=== PATIENT | female | born 1960 | race Caucasian/White ===

== ENCOUNTER → 2017-10-18 | Outpatient (CLI) | payer BC, SELFPAY | PROVIDERS: Visit Provider Physician Assistant | DX: I49.9 Cardiac arrhythmia, unspecified (principal); Z13.220 Encounter for screening for lipoid disorders | CPT/HCPCS: 36415; 80061; 84443 ==

== ENCOUNTER → 2019-06-25 08:23 | Outpatient (CLI) | payer BC, SELFPAY ==
--- NOTE | 2019-06-25 08:27 | MM_ITS ---
PROCEDURE: MM DIG SCREENING MAMM BI W/CAD CLINICAL INDICATION: SCREENING There is a history of breast cancer patient's paternal aunt diagnosed after menopause. There has been previous biopsy right breast for benign disease. COMPARISON: [facility] DIGITAL MAMM-SCREEN BILATERAL from 05/08/2012 [facility]B DIG MAMM-SCREEN DOMI from 12/31/2013 [facility]B DIG MAMM-SCREEN DOMI from 03/14/2016 TECHNIQUE: Standard CC and MLO images were obtained. R2 CAD reviewed. FINDINGS: There is a diffusely dense heterogeneous parenchymal pattern somewhat lessening the sensitivity of mammography. There is a stable asymmetric density near the axillary tail left breast likely focal area of glandular tissue. There is minimal arterial calcification in each breast. A biopsy clip is seen central portion right breast. There is no suspicious lesion on the no suspicious microcalcifications. IMPRESSION: Diffusely dense parenchymal pattern with no suspicious lesions seen BI-RAD Category: 2 Benign Finding(s) FOLLOW-UP: 1YR 1 Year Follow-up (A letter has been sent to the patient regarding results of the study.) Dictated by: Dr. Stefano Montana MD 06/26/2019 17:53 Signed by: <Electronically signed by Dr. Stefano Montana MD in [place]> 06/26/2019 17:53
== END ==
PROVIDERS: PCP Family Medicine; Visit Provider Family Medicine
DX: Z12.31 Encounter for screening mammogram for malignant neoplasm of breast (principal)
CPT/HCPCS: 77067

== ENCOUNTER → 2019-08-27 11:38 | Outpatient (CLI) | payer BC, SELFPAY ==
[2019-08-27 12:01] LABS: Basophils % 0.9 % (0.1-2.0); Eosinophils # 0.1 K/mm3 (0.0-0.4); Eosinophils % 1.3 % (0.1-12.0); Hemoglobin 12.4 g/dL (12.2-16.2); Lymphocytes # 1.3 K/mm3 (0.7-4.5); Lymphocytes % 31.3 % (10-50); Mean Corpuscular Hemoglobin 28.8 pg (27.0-31.2); Mean Corpuscular Volume 92.9 fl (81-99); Mean Platelet Volume 7.7 fl (7.4-10.4); Monocytes # 0.2 K/mm3 (0.1-1.0); Monocytes % 4.6 % (1.7-9.3); Neutrophils # 2.6 K/mm3 (1.8-7.8); Neutrophils % 61.9 % (37.0-80.0); Platelet Count 346 K/mm3 (142-424); Red Cell Distribution Width 14.3 % (11.5-17.5); White Blood Count 4.1 K/mm3 (4.8-10.8)
[2019-08-27 13:31] LABS: Cholesterol 266 mg/dL (140-200); HDL Cholesterol 89 mg/dL (29-89); LDL Cholesterol 153 mg/dL (0-130); Thyroid Stimulating Hormone 1.63 uIU/ml (0.358-3.740); Triglycerides 122 mg/dL (30-200); VLDL Cholesterol 24 mg/dL (0-40)
[2019-08-27 13:33] LABS: Alanine Aminotransferase 21 U/L (12-78); Albumin Level 3.9 gm/dL (3.4-5.0); Albumin/Globulin Ratio 1.1 (1.1-1.8); Alkaline Phosphatase 69 U/L (46-116); Anion Gap 11.4 mEq/L (5-15); Aspartate Amino Transferase 13 U/L (15-37); Bilirubin,Total 0.4 mg/dL (0.2-1.0); Blood Urea Nitrogen 9 mg/dL (7-18); Calcium 9.4 mg/dL (8.5-10.1); Carbon Dioxide 28 mmol/L (21.0-32.0); Chloride 103 mmol/L (98-107); Creatinine,Serum 0.63 mg/dL (0.55-1.02); Estimated Glomerular Filt Rate 96 ml/min (>60); Ferritin 15 ng/mL (8-388); GFR (African American) 117 ML/MIN (>60); Globulin 3.4 gm/dl (1.3-3.2); Glucose 84 mg/dL (74-106); Potassium 4.4 mmoL/L (3.5-5.1); Sodium 138 mmol/L (136-145); Total Protein,Serum 7.3 gm/dL (6.4-8.2)
[2019-08-28 08:14] LABS: Iron 65 ug/dL (27-159); UIBC 340 ug/dL (131-425)
[2019-08-28 18:49] LABS: Antiparietal Cell Antibody 108.5 Units (0.0-20.0)
[2019-08-28 18:50] LABS: Iron Saturation 16 % (15-55); Vitamin B12 1033 pg/mL (232-1245)
[2019-09-01 08:04] LABS: Gastrin 1688 pg/mL (0-115)
== END ==
PROVIDERS: PCP Physician Assistant; Visit Provider Internal Medicine Gastroenterology
DX: K21.9 Gastro-esophageal reflux disease without esophagitis (principal); K29.40 Chronic atrophic gastritis without bleeding; Z13.29 Encounter for screening for other suspected endocrine disorder; Z13.220 Encounter for screening for lipoid disorders
CPT/HCPCS: 36415; 80053; 80061; 82607; 82728; 82941; 83516; 83540; 83550; 84443; 85025

== ENCOUNTER → 2019-10-11 15:18 | Outpatient (POV) | payer BC, SELFPAY | PROVIDERS: Visit Provider Nurse Practitioner Family | DX: Z00.00 Encounter for general adult medical examination without abnormal findings (principal) ==

== ENCOUNTER → 2020-01-25 11:02 | Outpatient (CLI) | payer BC, SELFPAY ==
--- NOTE | 2020-01-25 | XR_ITS ---
PROCEDURE: XR SHOULDER RT MIN 2V CLINICAL INDICATION: ACUTE RT SHOULDER PAIN COMPARISON: [id number] VIEWS from 10/12/2014 FINDINGS: There is no fracture dislocation or other focal bony lesion. Joint spaces are preserved. IMPRESSION: No acute findings. Dictated by: Macho Esquivel 01/25/2020 12:42 Electronically signed by Macho Esquivel in [place] 01/25/2020 12:42
--- NOTE | 2020-01-25 | XR_ITS ---
PROCEDURE: XR CERVICAL SPINE 5V CLINICAL INDICATION: ACUTE RT SHOULDER PAIN Pain radiating down right upper extremity COMPARISON: No exams were available for comparison FINDINGS: There is moderate degenerative disc disease at C6-7. There is no acute fracture or dislocation. There is some spurring extending into the bilateral C6-7 neural foramina but they will remain widely patent. IMPRESSION: Degenerative disc disease C6-7 with no acute bone pathology. MRI if the patient is MRI compatible may be useful to further assess extent of disease. Dictated by: Macho Esquivel 01/25/2020 12:45 Electronically signed by Macho Esquivel in [place] 01/25/2020 12:45
== END ==
PROVIDERS: PCP Family Medicine; Visit Provider Family Medicine
DX: M25.511 Pain in right shoulder (principal)
CPT/HCPCS: 72050; 73030

== ENCOUNTER → 2020-02-21 12:23 | Outpatient (POV) | payer BC, SELFPAY | PROVIDERS: PCP Family Medicine; Visit Provider Specialist | DX: M50.10 Cervical disc disorder with radiculopathy, unspecified cervical region (principal); M79.601 Pain in right arm | CPT/HCPCS: 95886; 95908 ==

== ENCOUNTER → 2020-05-22 15:52 | Outpatient (POV) | payer BC, SELFPAY | PROVIDERS: PCP Family Medicine; Visit Provider Nurse Practitioner Family | DX: Z00.00 Encounter for general adult medical examination without abnormal findings (principal) ==

== ENCOUNTER → 2020-05-23 17:48 | Outpatient (CLI) | payer BC, SELFPAY ==
[2020-05-23 18:07] LABS: Basophils % 0.5 % (0.1-2.0); Eosinophils # 0.1 K/mm3 (0.0-0.4); Eosinophils % 1.1 % (0.1-12.0); Hematocrit 32.3 % (37.0-47.0); Hemoglobin 10.5 g/dL (12.2-16.2); Lymphocytes # 1.5 K/mm3 (0.7-4.5); Lymphocytes % 33.3 % (10-50); Mean Corpuscular HGB Conc 32.6 g/dL (31.8-35.4); Mean Corpuscular Hemoglobin 27.4 pg (27.0-31.2); Mean Corpuscular Volume 84.2 fl (81-99); Mean Platelet Volume 8.1 fl (7.4-10.4); Monocytes # 0.3 K/mm3 (0.1-1.0); Neutrophils # 2.6 K/mm3 (1.8-7.8); Neutrophils % 59.1 % (37.0-80.0); Platelet Count 285 K/mm3 (142-424); Red Blood Count 3.84 M/mm3 (4.20-5.40); Red Cell Distribution Width 15.9 % (11.5-17.5); White Blood Count 4.4 K/mm3 (4.8-10.8)
[2020-05-23 20:46] LABS: Chloride 98 mmol/L (98-107); Sodium 135 mmol/L (136-145)
[2020-05-23 20:47] LABS: Potassium 4.1 mmoL/L (3.5-5.1)
[2020-05-23 20:49] LABS: Alanine Aminotransferase 13 U/L (12-78); Alkaline Phosphatase 63 U/L (38-126); Anion Gap 13.1 mEq/L (5-15); Aspartate Amino Transferase 25 U/L (14-36); Bilirubin,Total 0.3 mg/dl (0.2-1.3); Blood Urea Nitrogen 13 mg/dl (7-17); Carbon Dioxide 28 mmol/L (22.0-30.0); Estimated Glomerular Filt Rate 102 ml/min (>60); GFR (African American) 123 ML/MIN (>60); Iron 38 ug/dL (37-170)
[2020-05-23 20:50] LABS: Albumin/Globulin Ratio 1.4 (1.1-1.8); Calcium 9.1 mg/dl (8.4-10.2); Globulin 2.8 g/dL (1.3-3.2); Glucose 84 mg/dl (74-100); Total Protein,Serum 6.8 g/dl (6.3-8.2)
[2020-05-23 20:59] LABS: Total Iron Binding Capacity 467 ug/dL (265-497)
[2020-05-23 21:25] LABS: Ferritin 4.82 ng/ml (11.1-264)
[2020-05-26 12:30] LABS: Folate 19.2 ng/mL (>3.0); Vitamin B12 1112 pg/mL (232-1245)
== END ==
PROVIDERS: Visit Provider Nurse Practitioner Family
DX: K29.40 Chronic atrophic gastritis without bleeding (principal); K64.9 Unspecified hemorrhoids; K58.1 Irritable bowel syndrome with constipation; K30 Functional dyspepsia; E74.31 Sucrase-isomaltase deficiency
CPT/HCPCS: 36415; 80053; 82306; 82607; 82728; 82746; 83540; 83550; 85025

== ENCOUNTER → 2020-08-21 12:52 | Outpatient (POV) | payer BC, SELFPAY | PROVIDERS: Visit Provider Nurse Practitioner Family | DX: Z00.00 Encounter for general adult medical examination without abnormal findings (principal) ==

== ENCOUNTER → 2020-12-23 11:02 | Outpatient (CLI) | payer BC, SELFPAY ==
[2020-12-23 12:13] LABS: Basophils % 0.6 % (0.1-2.0); Eosinophils # 0.1 K/mm3 (0.0-0.4); Eosinophils % 1.4 % (0.1-12.0); Hematocrit 40.9 % (37.0-47.0); Hemoglobin 13.4 g/dL (12.2-16.2); Lymphocytes # 1.4 K/mm3 (0.7-4.5); Lymphocytes % 32.6 % (10-50); Mean Corpuscular HGB Conc 32.8 g/dL (31.8-35.4); Mean Corpuscular Hemoglobin 30.5 pg (27.0-31.2); Monocytes # 0.3 K/mm3 (0.1-1.0); Monocytes % 6.2 % (1.7-9.3); Neutrophils # 2.6 K/mm3 (1.8-7.8); Neutrophils % 59.1 % (37.0-80.0); Platelet Count 279 K/mm3 (142-424); Red Blood Count 4.39 M/mm3 (4.20-5.40); Red Cell Distribution Width 13.7 % (11.5-17.5); White Blood Count 4.3 K/mm3 (4.8-10.8)
[2020-12-23 14:11] LABS: Iron 137 ug/dL (37-170)
[2020-12-23 14:20] LABS: Total Iron Binding Capacity 338 ug/dL (265-497)
[2020-12-23 14:47] LABS: Ferritin 22.1 ng/ml (11.1-264)
== END ==
PROVIDERS: Visit Provider Nurse Practitioner Family
DX: K30 Functional dyspepsia (principal); K29.40 Chronic atrophic gastritis without bleeding; K64.9 Unspecified hemorrhoids; K58.1 Irritable bowel syndrome with constipation; E74.31 Sucrase-isomaltase deficiency; D50.9 Iron deficiency anemia, unspecified
CPT/HCPCS: 36415; 82728; 83540; 83550; 85025

== ENCOUNTER → 2021-02-19 12:40 | Outpatient (POV) | payer BC, SELFPAY | PROVIDERS: Visit Provider Nurse Practitioner Family | DX: Z00.00 Encounter for general adult medical examination without abnormal findings (principal) ==

== ENCOUNTER → 2021-05-18 09:54 | Outpatient (CLI) | payer BC, SELFPAY ==
[2021-05-18 10:28] LABS: Basophils % 0.8 % (0.1-2.0); Eosinophils # 0.1 K/mm3 (0.0-0.4); Eosinophils % 1.7 % (0.1-12.0); Hematocrit 36.7 % (37.0-47.0); Hemoglobin 12.5 g/dL (12.2-16.2); Lymphocytes # 1.4 K/mm3 (0.7-4.5); Lymphocytes % 35.6 % (10-50); Mean Corpuscular HGB Conc 33.9 g/dL (31.8-35.4); Mean Corpuscular Hemoglobin 30.5 pg (27.0-31.2); Mean Corpuscular Volume 89.9 fl (81-99); Mean Platelet Volume 7.5 fl (7.4-10.4); Monocytes # 0.2 K/mm3 (0.1-1.0); Monocytes % 5.2 % (1.7-9.3); Neutrophils # 2.2 K/mm3 (1.8-7.8); Neutrophils % 56.7 % (37.0-80.0); Platelet Count 232 K/mm3 (142-424); Red Blood Count 4.09 M/mm3 (4.20-5.40); Red Cell Distribution Width 13.4 % (11.5-17.5); White Blood Count 3.8 K/mm3 (4.8-10.8)
[2021-05-18 10:59] LABS: Chloride 103 mmol/L (98-107); Sodium 138 mmol/L (136-145)
[2021-05-18 11:00] LABS: Potassium 4.4 mmoL/L (3.5-5.1)
[2021-05-18 11:01] LABS: Iron 85 ug/dL (37-170)
[2021-05-18 11:02] LABS: Alanine Aminotransferase 12 U/L (12-78); Albumin Level 4.2 g/dl (3.5-5.0); Albumin/Globulin Ratio 1.7 (1.1-1.8); Alkaline Phosphatase 71 U/L (38-126); Anion Gap 10.4 mEq/L (5-15); Aspartate Amino Transferase 23 U/L (14-36); Bilirubin,Total 0.4 mg/dl (0.2-1.3); Blood Urea Nitrogen 10 mg/dl (7-17); Carbon Dioxide 29 mmol/L (22.0-30.0); Cholesterol 242 mg/dl (140-200); Estimated Glomerular Filt Rate 101 ml/min (>60); GFR (African American) 123 ML/MIN (>60); Globulin 2.5 g/dL (1.3-3.2); Total Protein,Serum 6.7 g/dl (6.3-8.2); Triglycerides 92 mg/dl (30-150); VLDL Cholesterol 18 mg/dL (0-40)
[2021-05-18 11:03] LABS: Chol/HDL Ratio 2.8 (1-3.5); Glucose 88 mg/dl (74-100); HDL Cholesterol 87 mg/dl (40-60)
[2021-05-18 11:12] LABS: Total Iron Binding Capacity 361 ug/dL (265-497)
[2021-05-18 11:14] LABS: Direct LDL Cholesterol 111.54 mg/dL (100-129)
[2021-05-18 11:34] LABS: Thyroid Stimulating Hormone 2.09 uIU/mL (0.465-4.68)
[2021-05-18 11:38] LABS: Ferritin 8.83 ng/ml (11.1-264)
[2021-05-18 11:52] LABS: Vitamin B12 979 pg/mL (239-931)
== END ==
PROVIDERS: Nurse Practitioner Family; Visit Provider Physician Assistant
DX: R10.84 Generalized abdominal pain (principal); K30 Functional dyspepsia; K64.9 Unspecified hemorrhoids; K58.1 Irritable bowel syndrome with constipation; D50.9 Iron deficiency anemia, unspecified; E74.31 Sucrase-isomaltase deficiency; K29.40 Chronic atrophic gastritis without bleeding; E53.8 Deficiency of other specified B group vitamins; Z13.220 Encounter for screening for lipoid disorders
CPT/HCPCS: 36415; 80053; 80061; 82607; 82728; 83540; 83550; 84443; 85025

== ENCOUNTER → 2021-06-11 14:14 | Outpatient (POV) | payer BC, SELFPAY | PROVIDERS: Visit Provider Nurse Practitioner Family | DX: Z00.00 Encounter for general adult medical examination without abnormal findings (principal) ==

== ENCOUNTER → 2021-06-22 11:54 | Outpatient (CLI) | payer BC, SELFPAY | PROVIDERS: Visit Provider Internal Medicine Gastroenterology | DX: Z01.812 Encounter for preprocedural laboratory examination (principal); Z11.52 Encounter for screening for COVID-19 | CPT/HCPCS: U0003 ==

== ENCOUNTER 2021-06-25 11:01 | Day surgery (SDC) | payer BC, SELFPAY ==
[2021-06-20 12:39] VITALS: BMI 22.1
[2021-06-25 11:27] VITALS: BP 137/82; PULSE 67; RESP 18; TEMP 36.6; O2SAT 99
[2021-06-25 12:08] VITALS: O2SAT 96
--- NOTE | 2021-06-25 12:10 | P.PN_ITS ---
[facility] Anesthesia Checklist - Patient Identification Patient Identification: Arm Band - Structural Data Admitted From: Home Planned Operative Procedure/s: flexible sigmoidoscopy Consent for Planned Operative Procedure(s) Verified: Yes Verified Documents: Surgical Consent, History and Physical - NPO Status Verified Time NPO: 00:00 - Additional verifications Anesthesia Reactions: No - Airway Assessment C-Spine Mobility Assessed: Yes (mp2) TMJ Mobility Assessed: Yes Dentition: Good Dentition - Neurological Assessment Level of Consciousness: Awake, Alert - Anesthesia Plan Anesthesia Risk discussed: Yes Anesthesia Plan: Verified ASA Class: I Anesthesia Type: MAC [facility] History I have reviewed the patient's past medical history: Yes Medical History: Reports:: Gastroesophageal Reflux Disease(GERD) Denies:: Cancer, Diabetes Mellitus Type 1, Diabetes Mellitus Type 2, Internal Pacemaker, Lung Disease, MRSA, Seizures *Have you ever received a pneumonia vaccine?: No *Have you received a flu vaccine this season?: Yes Anesthesia experience/problems:: nac Other Surgeries: Yes: Hysterectomy-Partial. No: Pacemaker Amputation: No Fractures: No - *Social History Last grade of school completed: Some college Smoking Status: Never smoker Alcohol Intake: never Substance Use Type: denies use (1487) *Occupational Status:: employed Housing: house Household Members: spouse *Travel in the last 8 weeks: None Family Hx:: No significant family history
--- NOTE | 2021-06-25 12:23 | HMH.PROC ---
[facility] Procedure Note Procedure Note:: Flexible Sigmoidoscopy Procedure Report: Sigmoidoscopy with hemorrhoid band ligation Endoscopist: Deshawn Garcia II, MD Referring physician: Carrington Gunn MD/Annetta ASHER Date of Procedure: June 25, 2021 Equipment: Olympus 180 variable stiffness pediatric colonoscope Sedation: MAC sedation Indication: Mrs. Leon is a 60-year-old female with a long history of IBS with constipation. She also has chronic dyspepsia and GERD. She continues to have frequent hemorrhoidal bleeding and hemorrhoid prolapse. She did have diagnostic upper endoscopy and colonoscopy in July 2019. She had chronic atrophic gastritis. She also had internal hemorrhoids which were banded. She had 2 polyps (tubular adenomas x2) removed from the colon. She stopped taking the Motegrity and FiberCon. She also has not been taking the MiraLAX plus Metamucil routinely. 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 She sometimes forgets to take Sucraid. She does have iron deficiency related to her chronic atrophic gastritis. Sigmoidoscopy is performed because of her ongoing hemorrhoidal bleeding and prolapse. Procedure: Prior to the procedure, a history and physical exam was performed, and patient's medications and allergies were reviewed. The risks, benefits and alternatives of the sedation and procedure were discussed with the patient. All questions were answered and informed consent was obtained. The patient was brought to the procedure room. Patient identification and proposed procedure were verified by the physician and the nurse. The patient was placed in a left lateral decubitus position and the scope was passed under direct vision. Throughout the procedure, the patient's blood pressure, pulse, and oxygen saturations were monitored continuously. The colonoscopy was accomplished without difficulty. The patient tolerated the procedure well. Findings: On digital rectal examination, there was normal rectal tone. There were large external hemorrhoidal tags and external hemorrhoids with some hemorrhoidal prolapse. The scope was then inserted through the anal canal into the rectum and advanced to 35 cm. Upon withdrawal, the sigmoid and rectum were grossly normal. Upon retroflexion there were grade 3 internal hemorrhoids. There was some fibrosis from prior banding. 3 columns of hemorrhoids were banded using 4 bands with excellent ligation effect. There was no retraction of the external hemorrhoidal tissue. Impression: 1. Large grade 3 internal hemorrhoids status post band ligation x4 2. Large external hemorrhoids/external tags Plan: If the patient does have recurrence, I would then consider more formal hemorrhoidectomy (via colorectal surgery). I would encourage compliance with the fiber bowel regimen or combined Motegrity plus FiberCon.
[2021-06-25 12:32] VITALS: BP 131/73; PULSE 68; RESP 18; TEMP 36.5; O2SAT 96
[2021-06-25 12:42] VITALS: BP 151/84; PULSE 59; RESP 18; O2SAT 100
[2021-06-25 12:55] VITALS: BP 159/90; PULSE 59; RESP 18; O2SAT 99
[2021-06-25 13:13] VITALS: BP 141/82; PULSE 54; RESP 18; O2SAT 100
== END 2021-06-25 13:19 | disposition home or self-care (01) ==
LOC: OUTP 11:03
PROVIDERS: PCP Family Medicine; Visit Provider Internal Medicine Gastroenterology
PROC: 0DJD8ZZ Inspection of Lower Intestinal Tract, Via Natural or Artificial Opening Endoscopic (ICD-10-PCS; CPT 45330; principal; 2021-06-25 12:00)
DX: K64.2 Third degree hemorrhoids (principal); Z86.010 Personal history of colon polyps; Z87.19 Personal history of other diseases of the digestive system; K58.1 Irritable bowel syndrome with constipation; K21.9 Gastro-esophageal reflux disease without esophagitis; E78.5 Hyperlipidemia, unspecified; Z88.6 Allergy status to analgesic agent; Z79.890 Hormone replacement therapy
CPT/HCPCS: 45350

== ENCOUNTER → 2022-09-09 10:54 | Outpatient (CLI) | payer BC, SELFPAY ==
--- NOTE | 2022-09-09 11:00 | MM_ITS ---
PROCEDURE INFORMATION: Exam: MG Bilateral Screening 3D Mammography Exam date and time: 09/09/2022 10:54 AM Age: 62 years old Clinical indication: Screening examination. Family history of breast carcinoma. TECHNIQUE: Imaging protocol: Bilateral Screening tomosynthesis and 2D mammography including computer-aided detection (CAD) when performed. COMPARISON: 1. MG MM DIG SCREENING MAMM BI W/CAD 06/25/2019 8:45 AM 2. MG DMSB DIG MAMM-SCREEN DOMI 03/14/2016 4:59 PM 3. MG DMSB DIG MAMM-SCREEN DOMI 12/31/2013 3:30 PM FINDINGS: MAMMOGRAPHY: Breast composition: The breasts are heterogeneously dense, which may obscure small masses. Mass: No suspicious masses. Architectural distortion: No suspicious distortion. Calcifications: No suspicious calcifications. Asymmetric density: None. Skin thickening: None. Axillary adenopathy: None. IMPRESSION: No mammographic evidence of malignancy. Annual screening is recommended unless otherwise clinically indicated. ASSESSMENT: BI-RADS Category 1: Negative
== END ==
PROVIDERS: PCP Family Medicine; Visit Provider Family Medicine
DX: Z12.31 Encounter for screening mammogram for malignant neoplasm of breast (principal)
CPT/HCPCS: 77063; 77067

== ENCOUNTER → 2023-09-12 09:57 | Outpatient (CLI) | payer BC, MEDICARE, SELFPAY ==
--- NOTE | 2023-09-12 10:02 | MM_ITS ---
PROCEDURE INFORMATION: Exam: MG Bilateral Screening 3D Mammography Exam date and time: 09/12/2023 9:57 AM Age: 63 years old Clinical indication: Screening examination TECHNIQUE: Imaging protocol: Bilateral Screening tomosynthesis and 2D mammography including computer-aided detection (CAD) when performed. COMPARISON: 1. MG MM DIG SCREENING MAMM BI W/CAD 09/09/2022 10:54 AM 2. MG MM DIG SCREENING MAMM BI W/CAD 06/25/2019 8:45 AM FINDINGS: MAMMOGRAPHY: Breast composition: The breasts are heterogeneously dense, which may obscure small masses. Mass: None. Architectural distortion: None. Calcifications: No suspicious calcifications. Asymmetric density: None. Skin thickening: None. Axillary adenopathy: None. IMPRESSION: No mammographic evidence of malignancy. Annual screening is recommended unless otherwise clinically indicated. ASSESSMENT: BI-RADS Category 1: Negative
== END ==
PROVIDERS: PCP Family Medicine; Visit Provider Family Medicine
DX: Z12.31 Encounter for screening mammogram for malignant neoplasm of breast (principal)
CPT/HCPCS: 77063; 77067

== ENCOUNTER 2023-10-29 14:30 | Outpatient (CLI) | payer MEDICARE, OTHER, SELFPAY ==
[2023-10-29 15:04] LABS: Basophils % 0.9 % (0.1-2.0); Eosinophils # 0.1 K/mm3 (0.0-0.4); Eosinophils % 1.8 % (0.1-12.0); Hematocrit 35.5 % (37.0-47.0); Hemoglobin 11.9 g/dL (12.2-16.2); Lymphocytes % 28.3 % (10-50); Mean Corpuscular HGB Conc 33.4 g/dL (31.8-35.4); Mean Corpuscular Hemoglobin 30.5 pg (27.0-31.2); Mean Corpuscular Volume 91.4 fl (81-99); Mean Platelet Volume 7.9 fl (7.4-10.4); Monocytes # 0.2 K/mm3 (0.1-1.0); Monocytes % 5.8 % (1.7-9.3); Neutrophils # 2.3 K/mm3 (1.8-7.8); Neutrophils % 63.3 % (37.0-80.0); Platelet Count 291 K/mm3 (142-424); Red Blood Count 3.89 M/mm3 (4.20-5.40); Red Cell Distribution Width 15.7 % (11.5-17.5); White Blood Count 3.6 K/mm3 (4.8-10.8)
[2023-10-29 16:01] LABS: Alanine Aminotransferase 20 U/L (12-78); Albumin Level 3.9 g/dl (3.5-5.0); Albumin/Globulin Ratio 1.6 (1.1-1.8); Alkaline Phosphatase 62 U/L (38-126); Anion Gap 8.9 mEq/L (5-15); Aspartate Amino Transferase 28 U/L (14-36); Bilirubin,Total 0.2 mg/dl (0.2-1.3); Blood Urea Nitrogen 12 mg/dl (7-17); Calcium 8.5 mg/dl (8.4-10.2); Carbon Dioxide 27 mmol/L (22.0-30.0); Chloride 101 mmol/L (98-107); Cholesterol 256 mg/dl (140-200); Estimated Glomerular Filt Rate 100 ml/min (>60); GFR (African American) 121 ML/MIN (>60); Globulin 2.4 g/dL (1.3-3.2); Glucose 94 mg/dl (74-100); HDL Cholesterol 85 mg/dl (40-60); Potassium 3.9 mmoL/L (3.5-5.1); Sodium 133 mmol/L (136-145); Total Protein,Serum 6.3 g/dl (6.3-8.2); Triglycerides 127 mg/dl (30-150); VLDL Cholesterol 25 mg/dL (0-40)
[2023-10-29 16:13] LABS: Direct LDL Cholesterol 121.06 mg/dL (100-129)
[2023-10-29 16:32] LABS: Thyroid Stimulating Hormone 1.87 uIU/mL (0.465-4.68)
[2023-10-29 16:39] LABS: 25-OH Vitamin D, Total 39.4 ng/mL (30-100)
[2023-10-29 16:51] LABS: Vitamin B12 800 pg/mL (239-931)
== END 2023-10-29 23:59 ==
LOC: LAB 14:33
PROVIDERS: PCP Family Medicine; Visit Provider Physician Assistant
DX: E53.8 Deficiency of other specified B group vitamins (principal); E55.9 Vitamin D deficiency, unspecified; K21.9 Gastro-esophageal reflux disease without esophagitis; Z13.220 Encounter for screening for lipoid disorders; E78.00 Pure hypercholesterolemia, unspecified
CPT/HCPCS: 36415; 80053; 80061; 82306; 82607; 84443; 85025

== ENCOUNTER 2025-02-15 11:53 | Outpatient (CLI) | payer MEDICARE, OTHER, SELFPAY ==
--- NOTE | 2025-02-15 | XR_ITS ---
FINAL REPORT CLINICAL HISTORY: .NECK PAIN..NO TRUMA FINDINGS: 3 views of the cervical spine were obtained. There is no acute fracture or subluxation. Mild disc space narrowing is seen at C5-6 and C6-7. There are minimal anterior and posterior osteophytes. IMPRESSION: Degenerative changes without acute bony abnormality. Reviewed, Interpreted and Dictated by Farhan Graham MD Transcribed by Linda Weber Authenticated and [facility]
--- NOTE | 2025-02-15 | XR_ITS ---
FINAL REPORT CLINICAL HISTORY: .SI PAIN X 1 WEEK FINDINGS: RIGHT HIP Two views of the right hip demonstrate no acute fracture or dislocation. The joint spaces appear normal. The visualized bony structures are well aligned. No soft tissue abnormality is seen. IMPRESSION: No acute bony abnormality. Reviewed, Interpreted and Dictated by Farhan Graham MD Transcribed by Linda Weber Authenticated and [facility]
--- OUTSIDE RECORDS SUMMARY | 2025-02-15 11:57 | XMS_ITS ---
Author Organization Unknown TREATMENT PLAN Planned Care Start Date Provider Encounter for Check-up [id number] [facility]
== END 2025-02-15 23:59 | disposition home or self-care (01) ==
LOC: RAD 11:56
PROVIDERS: PCP Family Medicine; Visit Provider Nurse Practitioner Family
DX: M25.551 Pain in right hip (principal); M54.2 Cervicalgia
CPT/HCPCS: 72050; 73502

== ENCOUNTER 2025-03-23 10:00 | Outpatient (RCR) | payer MEDICARE, OTHER, SELFPAY ==
--- NOTE | 2025-03-02 14:24 | HMH.PTOPEV ---
PT Outpatient Evaluation Rehab PT Outpatient Evaluation Start: 03/02/25 12:56 Freq: Status: Active Protocol: Document 03/02/25 12:56 KRISTINE (Rec: 03/02/25 14:22 KRISTINE [id number]) E-signed By June Huff, PT Outpatient Therapy Subjective History Subjective History Pt is a 64 y/o female who presents to PT for neck and hip pain. Pt reports onset of R posterior hip pain that radiates to the R thigh on . Pt reports she thinks pain may have started after picking up a heavy tote. Pt reports pain worsened throughout the week so she went to the doctor and received a steroid shot and oral steroid medication with improvement in symptoms. Pt reports continued R posterior hip pain with intermittent pain in the front of the thigh to the inside of the knee and intermittent numbness/ tingling of her R lateral foot . Pt reports pain is aggravated by prolonged standing and walking. Pt reports pain fluctuates and she has good and bad days. Pt reports she had a R hip xray on 02/15/25 without significant findings. Pt denies having imaging of her low back. Current: 01/03 Best: 01/03 Worst : 08/05 Pt also reports chronic neck pain for years that seems to be worse at the end of the day. Pt reports pain often radiates to the top of the left shoulder. Pt denies more distal UE symptoms or paresthesia. Pt reports pain is aggravated by sitting with poor posture, lifting, and being stressed at work. Pt reports pain is usually brief in nature and improves with fixing her posture. Pt had a cervical spine xray on 02/15/25 with impression of Degenerative changes without acute bony abnormality. Pt reports she was prescribed muscle relaxers she takes as needed at night time which helps her sleep especially when she is stressed. Pt denies further comorbidities to report. 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 Chief Complaint Pain Symptom Type Ache,Sharp,Dull,Numbness, Tingling Symptoms Relieved By Heat Symptoms Aggravated By Standing,Bending/Stooping, Physical Activity,Walking, Lifting Current Functional Limitations Lifting,Housework,Sleeping, Standing,Walking Symptom Description Intermittent Cervical Eval Palpation Cervical Muscles R Upper Trapezius,L Upper Trapezius Cervical/Thoracic Palpation Findings Tenderness Flexibility Deficits Upper Trapezius Muscle Length (R) Mild Tightness,(L) Mild Tightness Levaetor Scapulae Muscle Length (R) Mild Tightness,(L) Moderate Tightness Passive Joint Mobility Cervical PIVM Dec: R C4/5 L C4/5 R C5/6 L C5/6 R C6/7 L C6/7 AROM Cervical Spine Extension Active Range of 45 Motion (degrees) Cervical Spine Flexion Active Range of 45 Motion (degrees) Cervical Spine Right Lateral Flexion 35 Active Range of Motion (degrees) Cervical Spine Left Lateral Flexion 35 Active Range of Motion (degrees) Cervical Spine Right Rotation Active 60 Range of Motion (degrees) Cervical Spine Left Rotation Active 60 Range of Motion (degrees) MMT Bilateral Deltoid (C5) 5 Normal Biceps Brachii Strength Grade 5 Normal Wrist Extension Strength Grade 5 Normal Triceps Brachii Strength Grade 5 Normal Wrist Flexion Strength Grade 5 Normal Extensor Pollicis Longus Strength Grade 5 Normal Finger Abduction Strength Grade 5 Normal Altered Sensation Comment equal and intact to light touch sensation bilaterally Special Test C-Spine Foraminal Compression (Spurling) Negative Left,Negative Right Test C-spine Verterbral Accessory Movements Left P/A [place] that Elicit Symptoms C-Spine Compression Test Negative Left,Negative Right Shoulder/Elbow Eval Shoulder Objective Measurements Shoulder MMT Bilateral Lower Trapezius Strength Grade 4- Good- Middle Trapezius Strength Grade 4- Good- Rhomboids Strength Grade 4- Good- Upper Trapezius/Levator Scapulae 4- Good- Elbow Objective Measurements Lumbopelvic Eval Posture Thoracic Spine Posture Standing Position Neutral Lumbar Spine Posture Standing Position Neutral Palapation tenderness bilateral lumbar spinal tenderness Yes buttock tenderness Yes: R gluteal mm Lumbar/Sacral Palpation Findings Tenderness Lumbar/Sacral Palpation Overall Comment 3/4 TTP Accessory Movement L-spine Vertebrae Accessory Movements Central P/A [place] that Elicit Symptoms L3 bilateral L4 bilateral L5 bilateral S1 bilateral Range of Motion Lumbar Spine Active Flexion Range of 100 Motion (degrees) Lumbar Spine Active Extension Range of 15 Motion (degrees) Left Lumbar Spine Lateral Flexion Active 10 Range of Motion (degrees) Right Lumbar Spine Lateral Flexion 10 Active Range of Motion (degrees) Altered Sensation Bilateral LE Dermatome Level L2,L3,L4,L5,S1 Comment decreased light touch sensation R compared to L Neck Disability Index Neck Disability Index Section 1: Pain Intensity The pain is very mild at moment Section 2: Personal Care (washing, I can look after myself dressing, etc.) normally without causing extra pain Section 3: Lifting I can only lift very light weights Section 4: Reading I can read as much as I want to with slight pain in my neck Section 5: Headaches I have no headaches at all Section 6: Concentration I can concentrate fully when I want to with no difficulty Section 7: Work I can only do my usual work, but no more Section 8: Driving I can drive my car as long as I want with slight pain in my neck Section 9: Sleeping My sleep is midly disturbed (1 -2 hrs sleepless) Section 10: Recreation I am able to engage in all my recreation activities with some pain in NDI Score 11 Lower Extremity Functional Index Activities Today, do you or would you have any difficulty at all with: a.Any of your usual work, housework or A little bit of difficulty school activities b. Your usual hobbies, recreational or A little bit of difficulty sporting activities c. Getting into or out of the bath No difficulty d. Walking between rooms No difficulty e. Putting on your shoes or socks A little bit of difficulty f. Squatting No difficulty g. Lifting an object, like a bag of A little bit of difficulty groceries from the floor h. Performing light activities around No difficulty your home i. Performing heavy activities around Quite a bit of difficulty your home j. Getting into or out of a car A little bit of difficulty k. Walking 2 blocks A little bit of difficulty l. Walking a mile A little bit of difficulty m. Going up or down 10 stairs (about 1 No difficulty flight of stairs) n. Standing for 1 hour Moderate difficulty o. Sitting for 1 hour Moderate difficulty p. Running on even ground Moderate difficulty q. Running on uneven ground Moderate difficulty r. Making sharp turns while running fast Quite a bit of difficulty s. Hopping Moderate difficulty t. Rolling over in bed A little bit of difficulty LEFI Score Lower Extremity Functional Index Score 56 Outpatient Therapy Assessment Impairments Problems/Impairmments Palpation Tenderness,Impaired Range of Motion,Impaired Strength,Impaired Walking, Impaired Standing,Impaired Lifting,Impaired Squatting, Impaired Bending,Impaired Work Activities,Subjective C/O Pain,Impaired Self Care/Self Management Prognosis Rehab Potential Good Clinical Impression Consistent with Diagnosis Yes Additional details: low back pain with radicular pain Short Term Goals Number of Weeks 3 Restore Ability to Lift Objects to Waist Yes: demonstrate proper Level lifting mechanics to prevent reinjury Decrease Subjective C/O Pain Yes: Improve pain at worst to 6/10 to improve overall QOL Improve Self Care/Self Management Yes Patient to be Ind w/ HEP Yes Prison Goals Number of Weeks 6 Decreased Palpation Tenderness Yes: 0-1/4 TTP of L cervical and R hip musculature Increase Range of Motion Yes: Improve cervical/lumbar AROM to WNL Increase Strength Yes: Improve strength scapular strength to 4-4+/5 grossly to assist with posture Improve Neck Disability Index Score Yes: Improve score to 6 or less to improve overall QOL Improve LEFI Score Yes: Improve score to 66/80 to improve overall QOL Decrease Subjective C/O Pain Yes: Improve pain at worst to 6/10 to improve overall QOL Improve Self Care/Self Management Yes Outpatient Therapy Plan of Care Treatment Plan May Include Therapeutic Exercise Including Home Yes Exercise Program Manual Therapy Techniques Yes Neuromuscular Re-education Yes Therapeutic Activities to Return to Yes Previous Functional/Work Level ADL/Self Care Education Yes Mechanical Traction Yes Dry Needling Yes Thermal Modalities Yes Electrical Stimulation Yes Ultrasound/Phonophoresis Yes Iontophoresis Yes Orthotics/Bracing/Splinting Yes Vasopneumatic Compression Pump Yes Massage Yes Group Therapy for Medicare Yes Eval/Re-Eval Yes Frequency Times per week 2 Duration Number of Weeks 4-6 Addendums This patient is a candidate for social No or vocational rehab? Patient/Guardian verbally acknowledges Yes understanding of treatment program and consents to further treatment? Patient/Guardian verbally acknowledges Yes understanding of diagnosis, prognosis and goals for treatment? PHYSICIAN CERTIFICATION: I certify the specified therapy services for Shreya Leon are required, authorized, and reviewed every 30 days.
== END 2025-03-23 23:59 | disposition home or self-care (01) ==
LOC: PT 10:00
PROVIDERS: PCP Family Medicine; Visit Provider Family Medicine
DX: M54.2 Cervicalgia (principal); M25.551 Pain in right hip
CPT/HCPCS: 97014; 97110; 97140; 97163; G0283

== ENCOUNTER 2025-04-19 11:00 | Outpatient (RCR) | payer MEDICARE, OTHER, SELFPAY ==
--- NOTE | 2025-04-05 12:02 | HMH.RHREAS ---
Rehab Reassessment Rehab OP Re-assessment Start: 03/29/25 11:00 Freq: Status: Active Protocol: Document 04/05/25 11:04 [email or web address] (Rec: 04/05/25 12:01 KRISTINE [id number]) E-signed By June Huff PT Neck Disability Index Neck Disability Index Section 1: Pain The pain is very mild at moment Intensity Section 2: Personal I can look after myself normally but it causes extra Care (washing, pain dressing, etc.) Section 3: Lifting Pain prevents me from lifting heavy weights, but I can manage light to Section 4: Reading I can read as much as I want to with slight pain in my neck Section 5: Headaches I have slight headaches, which come infrequently Section 6: I can concentrate fully when I want to with no Concentration difficulty Section 7: Work I can do most of my usual work, but no more Section 8: Driving I can drive my car as long as I want with slight pain in my neck Section 9: Sleeping My sleep is midly disturbed (1-2 hrs sleepless) Section 10: I am able to engage in most, but not all of my usual Recreation recreation NDI Score 14 Rehab Re-assessment Subjective Subjective Pt reports she feels 0% improved since starting PT. Pt reports continued left-sided neck pain rated 10/10 at worst aggravated by stress, tension, and poor posture. Pt states she feels like her pain has been he worst it has ever been over the last week. Pt denies known trauma or injury that could've worsened pain but does states she has worked a little more. Pt reports non- compliance with HEP, states she forget to do them at home. Pt states she returns to her doctor next Friday for a follow-up visit. Pt also reports new onset of R sided tingling of her pinky and ring finger that is intermittent in nature. Pt denies R shoulder or arm pain or paresthesia. Objective Objective Notes Special tests: + ulnar N tension test of RUE, - R Spurlings Palpation: 3/4 TTP of L>R levator scapulae and upper trapezius with trigger points noted, also C5-C7 Cervical AROM: flex 45, ext 45, RLF 25, LLF 45, Rrot 60 , Lrot 60 Scapular strength: 4-/5 grossly Assessment Progress Assessment Slower Than Expected Assessment Notes Pt has attended 5 PT treatment sessions consisting of cervical strengthening/stretching, scapular strengthening, postural re-education, manual therapy and modalities with good tolerance. Pt demonstrated slight regression in NDI score and right cervical lateral flexion AROM. Pt also presents with continued report of severe left sided neck pain and new onset of R sided paresthesia of the ring and pinky fingers. Pt has only attended PT 1x/week and voiced non-compliance with HEP while reporting taking increased shifts at work likely limiting progress at this time. Pt educated on importance of compliance with HEP And PT POC to assist with progress. Overall the pt would continue to benefit from skilled PT to further improve subjective report of pain, cervical AROM, scapular strength, and posture to improve work tolerance and overall QOL. Patient goals met ST/4 Goals Not Met p! at worst, HEP compliance, LTG Revised Goals n/a Plan Plan Continue POC Frequency of Therapy 2x/week Duration of therapy 4 more weeks Time and Billing Re-Eval Time 12 Re-Eval Billing 0 Units Charge for PT No reassessment? Charge for OT No reassessment? PHYSICIAN CERTIFICATION: I certify the specified therapy services for Shreya Leon are required, authorized, and reviewed every 30 days.
== END 2025-04-19 23:59 | disposition home or self-care (01) ==
LOC: PT 11:00
PROVIDERS: PCP Family Medicine; Visit Provider Family Medicine
DX: M54.2 Cervicalgia (principal); M25.551 Pain in right hip
CPT/HCPCS: 97110; 97140

== ENCOUNTER 2025-04-28 10:52 | Outpatient (RCR) | payer MEDICARE, OTHER, SELFPAY | END 2025-04-28 23:59 | disposition home or self-care (01) | LOC: PT 10:52 | PROVIDERS: PCP Family Medicine; Visit Provider Family Medicine | DX: M54.2 Cervicalgia (principal); M25.551 Pain in right hip | CPT/HCPCS: 97110; 97140 ==

== ENCOUNTER 2025-04-30 09:55 | Outpatient (CLI) | payer MEDICARE, OTHER, SELFPAY ==
--- OUTSIDE RECORDS SUMMARY | 2025-04-13 07:00 | XMS_ITS ---
[facility] Address [address] [facility] [address] [place] [phone] Care Team Providers Care Cover Cutter Machine Name Role Phone Gisela Gunn Primary Care Provider Annetta Novak Unavailable [phone] Allergies Allergen (clinical drug ingredient) Drug/Non Drug [...] Provider Diagnosis [facility] [address] [phone] 04/13/2025 Annetta Novak Adult general medica l [...] :1960 A ge:64 Y S ex:Female Date:04/13/2025 Address:[address] [place] [address] [id number] Pcp:Gisela Gunn Subjective: * Chief Complaints: * [...] New since last visit: none. Occupation: dental assistant office manager. Past smoking status: no. Occup. exposure: none. [...] with radiculopathy - M50.10 1 2. B GA 21.0-21.9, adult - Z68.21 1 3. O [...] 08:1 3:05 AM EDT > [facility] Tegan Armendariz 04/15/2025 11:56:18 AM EDT > [...] * Images: Billing Information: * Visit Code: 62983 Office Visit, Est Pt., Level 3. * [...] * Electronic signature of ISMAEL Morales on 04/30/2025 at 10:00 AM EDT Sign off status: Pending * Provider: ISMAEL Elkins Date: 0 04/13/2025 Generated for Kayla page/Grayson/eTransmitting on: 0 04/30/2025 10:00 AM EDT History and Physical Notes * HPI (History of Present Illness) Category Sub-Category Detail Notes Category Not es HPI Patient is here today for Patien t is here today for a Medicare [...]
--- OUTSIDE RECORDS SUMMARY | 2025-04-16 06:20 | XMS_ITS ---
Author Organization [facility] Address [address] [facility] [address] [place] [phone] Care Team Providers Care Entry Level Automotive Technician Name Role Phone Gisela Gunn Primary Care Provider JaspreetAnnetta davis Unavailable [phone] Results Component Value Reference Range Notes CBC Venipuncture (in house) Reviewed date:04/21/2025 09:17:03 AM Interpretation: Performing Lab: Notes/Report: wbc 3.7 3.5 - 10 lymph 31.7% 15 - 50 mid 6.9% 2 - 15 gran 61.4% 35 - 80 rbc 4.45 3.5 - 5.5 hgb 13.3 11.5 - 16.5 hct 39.9 35 - 55 mcv 89.6 75 - 100 mch 29.9 25 - 35 mchc 33.3 31 - 38 platlet 278 100 - 400 REASON FOR VISIT bloodwork Medications Medication SIG (Take, Route, Frequency, Duration) Notes Start Date End Date Status ZELNORM 6 MG 1 TAB(S) ORALLY 2 TIMES A DAY *Please review for potential replacement for e-prescription and drug interaction check* Active Vitamin K 100 MCG 1 tablet Orally Once a day; Duration: 30 day(s) Active Sucraid 8500 UNIT/ML 1 mL orally 3 times a day; Duration: 7 day(s) Active Fluconazole 150 MG 1 tablet Orally once daily 04/07/2024 Active Ferrous Sulfate 325 (65 Fe) MG 1 tablet Orally once daily; Duration: 30 day(s) 04/08/2024 Active Motegrity 2 MG 1 tablet Orally Once a day; Duration: 30 days 03/07/2025 Active Multivitamin - 1 tab(s) orally once a day; Duration: 30 day(s) Active Estradiol 1 MG Take 1 tablet by mouth once daily; Duration: 90 Active Linzess 290 MCG 1 capsule at least 30 minutes before the first meal of the day on an empty stomach Orally Once a day; Duration: 30 day(s) 03/15/2025 Active Cyclobenzaprine HCl 5 MG 1 tablet Orally three times a day as needed 10/03/2023 Active Magnesium 250 2 ORALLY DAILY *Please review a nd pick correct strength-formulati on from Blurb options. If intended option is not shown, discontinue and re-order from Quick Search* Active Vitamin D3 25 MCG (1000 UT) 1 tab(s) orally once a day; Duration: 30 day(s) Active Vitamin B-12 1000 MCG 1 tab(s) orally once a day 09/03/2013 Active Premarin 0.625 MG/GM 1 g apply topically twice a week prn Active Problems Problem Type SNOMED Code ICD Code Onset Dates Problem Status W/U Status Risk Notes Problem Vitamin D deficiency (19848062) Vitamin D deficiency, unspecified (E55.9) Active confirmed Problem Other hyperlipidemia (E78.4) Active confirmed Encounters Encounter Location Date Provider Diagnosis [facility] [address] [facility] [address] [place], [place] [phone] 04/16/2025 Annetta Novak Vitamin B12 deficien cy E53.8 ; Vitamin D deficiency, unspecified E55.9 ; Iron deficiency anemia, unspecified iron deficiency anemia type D50.9 and Hypercholesteremia E78.00 Assessments Encounter Date Diagnosis (ICD Code) Assessment Notes Treatment Notes Treatment Clinical Notes Section Notes 04/16/2025 Vitamin B12 deficien cy (ICD-10 - E53.8) 04/16/2025 Vitamin D deficiency , unspecified (ICD-10 - E55.9) 04/16/2025 Iron deficiency anemia, unspecified iron deficiency anemia type (ICD-10 - D50.9) 04/16/2025 Hypercholesteremia (ICD-10 - E78.00) Plan Of Treatment Pending Test Test Name Order Date P-Vitamin B12 04/16/2025 P-Comprehensive Metabolic Panel (CMP) P-Iron 04/16/2025 P-Lipid Panel 04/16/2025 P-TSH reflex to FT4 04/16/2025 P-Vitamin D 25-Hydroxy 04/16/2025 Progress Notes * NICKI CATHERINEOB: 8 (64 yo F)Acc No.[id number]:04/16/2025 Patient: TAMIKA YBARRA Provider: ISMAEL Elkins :1960 A ge:64 Y S ex:Female Date:04/16/2025 Address:[address] [place] [address] [place], [id number] Pcp:Gisela Gunn Subjective: * Chief Complaints: * 1 . Bloodwork. * Medical History: * Medications: T aking Vitamin B-12 1000 MCG Tablet 1 tab(s) orally once a day , Taking Premarin 0.625 MG/GM Cream 1 g apply topically twice a week prn , Taking Magnesium 250 MG 2 ORALLY DAILY , Notes to Pharmacist: *Please review and pick correct strength- formulation from Blurb options. If intended option is not shown, discontinue and re-order from Quick Search*, Taking Vitamin D3 25 MCG (1000 UT) Tablet 1 tab(s) orally once a day , Taking Multivitamin - Tablet 1 tab(s) orally once a day , Taking Estradiol 1 MG Tablet Take 1 tablet by mouth once daily , Taking Motegrity 2 MG Tablet 1 tablet Orally Once a day , Taking Linzess 290 MCG Capsule 1 capsule at least 30 minutes before the first meal of the day on an empty stomach Orally Once a day , Taking Cyclobenzaprine HCl 5 MG Tablet 1 tablet Orally three times a day as needed , Taking Fluconazole 150 MG Tablet 1 tablet Orally once daily , Taking Ferrous Sulfate 325 (65 Fe) MG Tablet Delayed Release 1 tablet Orally once daily , Taking Vitamin K 100 MCG Tablet 1 tablet Orally Once a day , Taking Sucraid 8500 UNIT/ML Solution 1 mL orally 3 times a day , Taking ZELNORM 6 MG TABLET 1 TAB(S) ORALLY 2 TIMES A DAY , Notes to Pharmacist: *Please review for potential replacement for e-prescription and drug interaction check*, Medication List reviewed and reconciled with the patient Objective: * Vitals: Assessment: * Assessment: 1. V itamin B12 deficiency - E53.8 (Primary) 2 . V itamin D deficiency, unspecified - E55.9 3 . I samantha deficiency anemia, unspecified iron deficiency anemia type - D50.9 4 . H ypercholesteremia - E78.00 Plan: * Treatment: 2. V itamin D deficiency, unspecified L AB: P-Vitamin D 25-Hydroxy 3. I samantha deficiency anemia, unspecified iron deficiency anemia type L AB: P-Iron L AB: CBC Venipuncture (in house) (Collection Date & Time - 04/16/2025) Value Reference Range w bc 3.7 3.5 - 10 * l ymph 31.7% 15 - 50 * m id 6.9% 2 - 15 * g ran 61.4% 35 - 80 * r bc 4.45 3.5 - 5.5 * h gb 13.3 11.5 - 16.5 * h ct 39.9 35 - 55 * m cv 89.6 75 - 100 * m ch 29.9 25 - 35 * m chc 33.3 31 - 38 * p latlet 278 100 - 400 * Sugar Wilson L 04/16/2025 10 :45:12 AM EDT > 4.?Hypercholesteremia?LAB: P-Comprehensive Metabolic Panel (CMP) ?LAB: P-Lipid Panel ?LAB: P-TSH reflex to FT4 * Procedure Codes: 3 6415 VENIPUNCT, ROUTINE*, 33970 CBC WITH AUTO DIFF * Images: Billing Information: * Visit Code: * Procedure Codes: 62855 VENIPUNCT, ROUTINE*. 83442 CBC WITH AUTO DIFF. * Electronic signature of ISMAEL Morales on 04/30/2025 at 10:00 AM EDT Sign off status: Pending * Provider: ISMAEL Elkins Date: 0 04/16/2025 Generated for Kayla page/Grayson/eTransmitting on: 0 04/30/2025 10:00 AM EDT
--- OUTSIDE RECORDS SUMMARY | 2025-04-28 08:26 | XMS_ITS ---
Author Organization [facility] Address 1210 [facility] 36 [facility] [address] [place] [id number] Care Team Providers Care Professor Of Rhetoric Name Role Phone Gisela Gunn Primary Care Provider Annetta Novak [phone] REASON FOR VISIT lab and DI order Encounters Encounter Location Date Provider Diagnosis [facility] 1210 [facility] 36 [facility] [address] [place] [phone] 04/28/2025 Annetta Novak Neck pain M54.2 Assessments Encounter Date Diagnosis (ICD Code) Assessment Notes Treatment Notes Treatment Clinical Notes Section Notes 04/28/2025 Neck pain (ICD-10 - M54.2) Plan Of Treatment Pending Test Test Name Order Date MRI : Spine, Cervical, without contrast 04/28/2025 Progress Notes * CATHERINENICKI KLEINOB: (64 yo F)Acc No.[id number]:04/28/2025 Patient: TAMIKA YBARRA :1960 A ge:64 Y S ex:Female Address:[address] [place] [address] [place] [address] Subjective: * Chief Complaints: * l ab and DI order * Medical History: * Surgical History: * Hospitalization/Major Diagno stic Procedure: * Medications: Objective: * Vitals: * Physical Examination: Assessment: * Assessment: 1. N roc pain - M54.2 (Primary) Plan: * Treatment: * Procedure Codes: * true * Date: Generated for Printi ng/Faxing/eTransmitting on: 0 04/30/2025 10:00 AM EDT
--- OUTSIDE RECORDS SUMMARY | 2025-04-30 10:00 | XMS_ITS | Patient Health Record ---
[facility] Address [address] [facility] [address] [place] [phone] Care Team Providers Care Regional Extension Service Specialist Name Role Phone Gisela Gunn Primary Care Provider [phone] Jessenia Rehman Unavailable [phone] Annetta Novak Unavailable [phone] Allergies Allergen (clinical drug ingredient) Drug/Non Drug Allergy documented on EMR Reaction Allergy Type Onset Date Status codeine Codeine Unknown Drug Allergy Active Results Component Value Reference Range Notes CBC [...] - 38 platlet 278 100 - 400 X ray : Hip, right Reviewed date:02/16/2025 04:30:34 PM Interpretation:no acute changes Performing Lab: Notes/Report: no acute changes X ray : Spine, cervical Reviewed date:02/16/2025 04:30:02 PM Interpretation:degenerative changes Performing Lab: Notes/Report: degenerative changes Medications Medication SIG (Take, Route, Frequency, Duration) Notes Start Date End Date Status Motegrity 2 MG 1 tablet Orally Once a day; Duration: 30 days 03/07/2025 Active Multivitamin - 1 tab(s) orally once a day; Duration: 30 day(s) Active Estradiol 1 MG Take 1 tablet by mouth once daily; Duration: 90 Active Magnesium 250 2 ORALLY DAILY *Please review a nd pick correct strength-formulati on from [employer] options. If intended option is not shown, discontinue and re-order from [employer]* Active ZELNORM 6 MG 1 TAB(S) ORALLY 2 TIMES A DAY *Please review for potential replacement for e-prescription and drug interaction check* Active Vitamin D3 25 MCG (1000 UT) 1 tab(s) orally once a day; Duration: 30 day(s) Active Vitamin B-12 1000 MCG 1 tab(s) orally once a day 09/03/2013 Active Vitamin K 100 MCG 1 tablet Orally Once a day; Duration: 30 day(s) Active Premarin 0.625 MG/GM 1 g apply topically twice a week prn Active Sucraid 8500 UNIT/ML 1 mL orally 3 times a day; Duration: 7 day(s) Active Fluconazole 150 MG 1 tablet Orally once daily 04/07/2024 Active Ferrous Sulfate 325 (65 Fe) MG 1 tablet Orally once daily; Duration: 30 day(s) 04/08/2024 Active Linzess 290 MCG 1 capsule at least 30 minutes before the first meal of the day on an empty stomach Orally Once a day; Duration: 30 day(s) 03/15/2025 Active Cyclobenzaprine HCl 5 MG 1 tablet Orally three times a day as needed 10/03/2023 Active Immunizations Vaccine Route Administration Date Status Comme nts xFluzone High Dose-private (65yr&older) Unknown 09/24/2024 Administered xFluzone (6mos and older)-trivalent ID Intradermal 11/19/2012 Administered Twinrix-Hep A and Hep B Unknown 08/21/2018 Administered Twinrix-Hep A and Hep B Unknown 09/24/2018 Administered Twinrix-Hep A and Hep B Unknown 03/05/2019 Administered Tetanus Tdap-Adacel (over 7yrs) IM Intramuscular 10/04/2010 Administered Tetanus Tdap-Adacel (over 7yrs) Unknown 08/21/2018 Administered Tetanus Tdap-Adacel (over 7yrs) Unknown 02/10/2022 Administered Shingrix Unknown 07/16/2022 Administered Shingrix Unknown 03/03/2023 Administered Prevnar (PCV20) IM Intramuscular 10/03/2023 Administered Fluzone Quad (6months&older) Unknown 08/13/2018 Administered Fluzone Quad (6months&older) IM Intramuscular 08/27/2019 Administered Fluzone Quad (6months&older) IM Intramuscular 08/17/2020 Administered Fluzone PF Quad (6-35 months) Unknown 08/13/2018 Administered Fluzone PF Quad (6-35 months) Unknown 08/18/2022 Administered Fluzone High Dose (65yr and older) IM Intramuscular 10/03/2023 Administered DT, 7 YEARS OR OLDER Unknown 01/03/1997 Administered COVID 19 Moderna Unknown 11/01/2020 Administered COVID 19 Moderna Unknown 11/29/2020 Administered COVID 19 Moderna Unknown 08/22/2021 Administered COVID 19 Moderna Unknown 05/08/2022 Administered Problems Problem Type SNOMED Code ICD Code Onset Dates Problem Status W/U Status Risk Notes Problem Vitamin D deficiency (51995612) Vitamin D deficiency (E55.9) Active confirmed Problem Vitamin B12 deficien cy (151618953) Vitamin B12 deficiency (E53.8) Active confirmed Problem Vitamin D deficiency (28294220) Vitamin D deficiency, unspecified (E55.9) Active confirmed Problem Hyperlipidemia (30316981) Other hyperlipidemia (E78.4) Active confirmed Problem Unspecified menopausal and perimenopausal disorder (N95.9) Active confirmed Problem Cervical disc disord er with radiculopathy (360129379) Cervical disc disorder with radiculopathy (M50.10) Active confirmed Problem Constipation (24481764) Constipation, unspecified constipation type (K59.00) Active confirmed Problem Neck pain (04548596) Acute neck pain (M54.2) Active confirmed Problem Gastroesophageal reflux disease with esophagitis (419420460) Gastroesophageal reflux disease with esophagitis (K21.0) Active confirmed Problem Paresthesia (finding ) (69051914) Paresthesias (R20.2) Active confirmed Problem Gastroesophageal reflux disease (049979720) Gastroesophageal reflux disease, esophagitis presence not specified (K21.9) Active confirmed Problem Arthralgia of the pelvic region and thigh (670699868) Right hip pain (M25.551) Active confirmed Problem Iron deficiency anem ia (27638261) Iron deficiency anemia, unspecified iron deficiency anemia type (D50.9) Active confirmed Problem Cardiac dysrhythmia (840053240) Cardiac dysrhythmia, unspecified (I49.9) Active confirmed Problem Atrophic gastritis (86923363) Chronic gastritis without bleeding, unspecified gastritis type (K29.50) Active confirmed Problem Irritable bowel syndrome characterized by constipation (628074760) Irritable bowel syndrome with constipation (K58.1) Active confirmed Problem Irritable bowel syndrome (02487825) Irritable bowel syndrome with both constipation and diarrhea (K58.2) Active confirmed Problem Bladder spasm (502340295) Bladder spasm (N32.89) Active confirmed Problem Gastroesophageal reflux disease (919780056) Gastroesophageal reflux disease, unspecified whether esophagitis present (K21.9) Active confirmed Problem hypercholesterolemia (disorder) (89636389) Hypercholesteremia (E78.00) Active confirmed Vital Signs Heart Rate 66 /min 04/13/2025 Blood pressure diastolic 84 mm Hg 04/13/2025 Height 67 in 04/13/2025 Blood pressure systolic 126 mm Hg 04/13/2025 Weight 139.0 lbs 04/13/2025 BMI 21.77 kg/m2 04/13/2025 Encounters Encounter Location Date Provider Diagnosis [facility] [address] [facility] [address] [place], [place] [id number] 02/15/2025 Gisela Gunn [facility] [address] [facility] [address] [place], [place] [id number] 02/16/2025 Annetta Novak [facility] [address] [place], [place] [id number] 02/21/2025 Jessenia Rehman [facility] [address] [place], [place] [id number] 03/04/2025 Jessenia Rehman [facility] [address] [place], [place] [id number] 03/08/2025 Jessenia Garciaond [facility] [address] [place], [place] [id number] 03/15/2025 Gisela Gunn [facility] [address] [place], [place] [id number] 04/28/2025 Annetta Novak Neck pain M54.2 [facility] [address] [place] [id number] 02/15/2025 Jessenia Rehman Acute neck pain M54. 2 ; Acute right hip pain M25.551 and BMI 22.0-22.9, adult Z68.22 [facility] 1210 [facility] [address] [place] [id number] 04/16/2025 Annetta Novak Vitamin B12 deficien cy E53.8 ; Vitamin D deficiency, unspecified E55.9 ; Iron deficiency anemia, unspecified iron deficiency anemia type D50.9 and Hypercholesteremia E78.00 [facility] 12[facility] [address] [place] [id number] 04/13/2025 Annetta Novak Adult general medica l [...] Treatment Notes Treatment Clinical Notes Section Notes 02/15/2025 Acute neck pain (ICD-10 - M54.2) complete MDP; xray 02/15/2025 Acute right hip pain (ICD-10 - M25.551) complete MDP; OTC NSAID prn; ice/heat application; she would really like to have the hip xrayed 04/13/2025 Neck pain (ICD-10 - M54.2) 04/13/2025 Adult general medica l examination (ICD-10 - Z00.00) Patient instructed to return to office Annually for Annual Wellness Visits to include annual screenings of Pain assessment, Functional Ability assessment, Cognitive Ability assessment, Fall Risk assessment, Depression screening and Bladder control screening. 04/28/2025 Neck pain (ICD-10 - M54.2) 04/16/2025 Vitamin B12 deficien cy (ICD-10 - E53.8) 04/16/2025 Vitamin D deficiency , unspecified (ICD-10 - E55.9) 04/13/2025 Hormone replacement therapy (ICD-10 - Z79.890) 04/16/2025 Iron deficiency anemia, unspecified iron deficiency anemia type (ICD-10 - D50.9) 02/15/2025 BMI 22.0-22.9, adult (ICD-10 - Z68.22) 04/16/2025 Hypercholesteremia (ICD-10 - E78.00) 04/13/2025 Vitamin B12 deficien cy (ICD-10 - [...] lipid (ICD-10 - Z13.220) Plan Of Treatment Pending Test Test Name Order Date MRI : Spine, Cervical, without contrast 04/28/2025 Bone density 04/13/2025 Bone density 04/07/2024 Mammogram 04/13/2025 P-Vitamin B12 04/16/2025 P-Comprehensive Metabolic Panel (CMP) P-Iron 04/16/2025 P-Lipid Panel 04/16/2025 P-TSH reflex to FT4 04/16/2025 P-Vitamin D 25-Hydroxy 04/16/2025 Insurance Providers Payer Name Payer Address Payer Phone Subscriber Number Group Number Insured Name Patient Relationship to Insured Coverage Start Date Coverage End Date MEDICARE PART B [address] [address] [place] [phone] [id number] TAMIKA HASSAN Self - patient is the insured [address] [id number] TAMIKA HASSAN Self - patient is the insured Medications Administered Medication Instructions Date of Administration Dosage Notes Dexamethasone 03/21/2015 1 mL Given by [facility] (General) History Medical History History ICD Code Esophageal reflux MRI on left shoulder Surgical History Surgery Date(Month/Year) tubal ligation 1996 colonoscopy [address] Mondragon total hysterectomy 09/26/2009 EGD 2013 colonoscopy/egd 07/2019
[2025-04-30 11:04] LABS: Alanine Aminotransferase 15 U/L (12-78); Albumin Level 4.4 g/dl (3.5-5.0); Albumin/Globulin Ratio 1.7 (1.1-1.8); Alkaline Phosphatase 70 U/L (38-126); Anion Gap 11.1 mEq/L (5-15); Aspartate Amino Transferase 28 U/L (14-36); Bilirubin,Total 0.6 mg/dl (0.2-1.3); Blood Urea Nitrogen 13 mg/dl (7-17); Calcium 9.4 mg/dl (8.4-10.2); Carbon Dioxide 28 mmol/L (22.0-30.0); Chloride 98 mmol/L (98-107); Cholesterol 260 mg/dl (140-200); Creatinine,Serum 0.60 mg/dl (0.52-1.04); Estimated Glomerular Filt Rate 100 ml/min (>60); GFR (African American) 121 ML/MIN (>60); Globulin 2.6 g/dL (1.3-3.2); Glucose 89 mg/dl (74-100); HDL Cholesterol 90 mg/dl (40-60); Potassium 4.1 mmoL/L (3.5-5.1); Sodium 133 mmol/L (136-145); Total Protein,Serum 7.0 g/dl (6.3-8.2); Triglycerides 123 mg/dl (30-150)
[2025-04-30 11:21] LABS: 25-OH Vitamin D, Total 33.2 ng/mL (30-100)
[2025-04-30 11:34] LABS: Thyroid Stimulating Hormone 2.63 uIU/mL (0.465-4.68)
[2025-04-30 11:53] LABS: Vitamin B12 522 pg/mL (239-931)
[2025-04-30 14:47] LABS: Iron 148 ug/dL (37-170)
== END 2025-04-30 23:59 | disposition home or self-care (01) ==
LOC: LAB 09:58
PROVIDERS: Physician Assistant; PCP Family Medicine; Visit Provider Family Medicine
DX: D50.9 Iron deficiency anemia, unspecified (principal); E78.00 Pure hypercholesterolemia, unspecified; E55.9 Vitamin D deficiency, unspecified
CPT/HCPCS: 36415; 80053; 80061; 82306; 82607; 83540; 84443

== ENCOUNTER 2025-05-11 09:23 | Outpatient (CLI) | payer MEDICARE, OTHER, SELFPAY ==
--- OUTSIDE RECORDS SUMMARY | 2025-04-13 07:00 | XMS_ITS ---
Author Organization [facility] Address [address] [facility] [address] [place] [id number] Care Team Providers Care Clinical Professor Name Role Phone Gisela Gunn Primary Care Provider Annetta Novak Unavailable [phone] Allergies Allergen (clinical drug ingredient) Drug/Non Drug Allergy documented on EMR Reaction Allergy Type Onset Date Status codeine Codeine Unknown Drug Allergy Active REASON FOR VISIT Annual Wellness Visit Medications Medication SIG (Take, Route, Frequency, Duration) Notes Start Date End Date Status Fluconazole 150 MG 1 tablet Orally once daily 04/07/2024 Not-Taking Ferrous Sulfate 325 (65 Fe) MG 1 tablet Orally once daily; Duration: 30 day(s) 04/08/2024 Not-Taking Vitamin K 100 MCG 1 tablet Orally Once a day; Duration: 30 day(s) Not-Taking Sucraid 8500 UNIT/ML 1 mL orally 3 times a day; Duration: 7 day(s) Not-Taking ZELNORM 6 MG 1 TAB(S) ORALLY 2 TIMES A DAY *Please review for potential replacement for e-prescription and drug interaction check* Not-Taking Estradiol 1 MG Take 1 tablet by mouth once daily; Duration: 90 Active Cyclobenzaprine HCl 5 MG 1 tablet Orally three times a day as needed 10/03/2023 Not-Taking Multivitamin - 1 tab(s) orally once a day; Duration: 30 day(s) Active Motegrity 2 MG 1 tablet Orally Once a day; Duration: 30 days 03/07/2025 Not-Taking Linzess 290 MCG 1 capsule at least 30 minutes before the first meal of the day on an empty stomach Orally Once a day; Duration: 30 day(s) 03/15/2025 Not-Taking Vitamin D3 25 MCG (1000 UT) 1 tab(s) orally once a day; Duration: 30 day(s) Active Vitamin B-12 1000 MCG 1 tab(s) orally once a day 09/03/2013 Active Premarin 0.625 MG/GM 1 g apply topically twice a week prn Active Magnesium 250 2 ORALLY DAILY *Please review and pick correct strength-formulat ion from Medispan options. If intended option is not shown, discontinue and re-order from Quick Search* Active Vital Signs Weight 139.0 lbs 04/13/2025 Blood pressure systolic 126 mm Hg 04/13/20 25 Blood pressure diastolic 84 mm Hg 025 Heart Rate 66 /min 04/13/2025 Height 67 in 04/13/2025 BMI 21.77 kg/m2 04/13/2025 Encounters Encounter Location Date Provider Diagnosis [facility] [address] [id number] 04/13/2025 Annetta Novak Adult general medica l examination Z00.00 ; Neck pain M54.2 ; Hormone replacement therapy Z79.890 ; Vitamin B12 deficiency E53.8 ; Cardiac dysrhythmia, unspecified I49.9 ; Irritable bowel syndrome with both constipation and diarrhea K58.2 ; Gastroesophageal reflux disease, esophagitis presence not specified K21.9 ; Hypercholesteremia E78.00 ; Vitamin D deficiency E55.9 ; Iron deficiency anemia, unspecified iron deficiency anemia type D50.9 ; Cervical disc disorder with radiculopathy M50.10 ; BMI 21.0-21.9, adult Z68.21 ; Osteoporosis screening Z13.820 ; Screening mammogram, encounter for Z12.31 and Screening, lipid Z13.220 Assessments Encounter Date Diagnosis (ICD Code) Assessment Notes Treatment Notes Treatment Clinical Notes Section Notes 04/13/2025 Adult general medica l examination (ICD-10 - Z00.00) Patient instructed to return to office Annually for Annual Wellness Visits to include annual screenings of Pain assessment, Functional Ability assessment, Cognitive Ability assessment, Fall Risk assessment, Depression screening and Bladder control screening. 04/13/2025 Neck pain (ICD-10 - M54.2) 04/13/2025 Hormone replacement therapy (ICD-10 - Z79.890) 04/13/2025 Vitamin B12 deficien cy (ICD-10 - E53.8) 04/13/2025 Cardiac dysrhythmia, unspecified (ICD-10 - I49.9) 04/13/2025 Irritable bowel syndrome with both constipation and diarrhea (ICD-10 - K58.2) 04/13/2025 Gastroesophageal reflux disease, esophagitis presence not specified (ICD-10 - K21.9) 04/13/2025 Hypercholesteremia (ICD-10 - E78.00) Will come back for fasting labs. Will need a CBC, CMP, LIpid, B12, Vit D, TSH with reflex to Free T4, Iron, Ferritin 04/13/2025 Vitamin D deficiency (ICD-10 - E55.9) 04/13/2025 Iron deficiency anemia, unspecified iron deficiency anemia type (ICD-10 - D50.9) 04/13/2025 Cervical disc disord er with radiculopathy (ICD-10 - M50.10) 04/13/2025 BMI 21.0-21.9, adult (ICD-10 - Z68.21) 04/13/2025 Osteoporosis screeni ng (ICD-10 - Z13.820) 04/13/2025 Screening mammogram, encounter for (ICD-10 - Z12.31) 04/13/2025 Screening, lipid (ICD-10 - Z13.220) Plan Of Treatment Treatment Notes Assessment Notes Adult general medical examination Patient instructed to return to office Annually for Annual Wellness Visits to include annual screenings of Pain assessment, Functional Ability assessment, Cognitive Ability assessment, Fall Risk assessment, Depression screening and Bladder control screening. Hypercholesteremia Will come back for f asting labs. Will need a CBC, CMP, LIpid, B12, Vit D, TSH with reflex to Free T4, Iron, Ferritin Pending Test Test Name Order Date Bone density 04/13/2025 Mammogram 04/13/2025 Next Appt Details Follow Up: As directed by MD . As directed by MD, Reason: Progress Notes * NICKI CATHERINEOB: 8 (64 yo F)Acc No.[id number]:04/13/2025 Annual Wellness Visit Patient: Fernando TAMIKA KNOX Provider: ISMAEL Elkins :1960 A ge:64 Y S ex:Female Date:04/13/2025 Address:[address] [place] [address] [place], [id number] Pcp:Gisela Gunn Subjective: * Chief Complaints: * 1 . Annual Wellness Visit. * HPI: H PI: Patient is here today for P atient is here today for a Medicare Annual Wellness Visit. Pt sts she has been going to Pt for sciatic pain in her leg which has now resolved, however she has been having pain in her neck and she would like an MRI . * ROS: O PTHALMOLOGY: Negative for d enies vision issues. * Medical History: E sophageal reflux, MRI on left shoulder. * Surgical History: t ubal ligation 1996, colonoscopy 1999, colonoscopy 2007, Dr. Mondragon total hysterectomy 09/26/2009, EGD 2013, colonoscopy/egd 07/2019. * Family History: F ather: , December 31, 2010. M other: alive 100 yrs. 2 brother(s) , 1 sister(s) - healthy. . 1 brother aneurysm. * Social History: C URRENT TOBACCO USE S moking Status: Patient does NOT smoke, Former Smoker: No, Second hand smoke exposure: No. C affeine: yes, frequency:daily. Exercise: yes. Home smoke detector use: yes. Marital Status: Single. New since last visit: none. Occupation: dental infertility medical assistant. Past smoking status: no. Occup. exposure: none. Recreational drug use: no. Alcohol: no. Travel ouside [place]: no. * Medications: T aking Vitamin B-12 1000 MCG Tablet 1 tab(s) orally once a day , Taking Premarin 0.625 MG/GM Cream 1 g apply topically twice a week prn , Taking Magnesium 250 MG 2 ORALLY DAILY , Notes to Pharmacist: *Please review and pick correct strength- formulation from Medispan options. If intended option is not shown, discontinue and re-order from Quick Search*, Taking Vitamin D3 25 MCG (1000 UT) Tablet 1 tab(s) orally once a day , Taking Multivitamin - Tablet 1 tab(s) orally once a day , Taking Estradiol 1 MG Tablet Take 1 tablet by mouth once daily , Not-Taking Motegrity 2 MG Tablet 1 tablet Orally Once a day , Not-Taking Linzess 290 MCG Capsule 1 capsule at least 30 minutes before the first meal of the day on an empty stomach Orally Once a day , Not- Taking Cyclobenzaprine HCl 5 MG Tablet 1 tablet Orally three times a day as needed , Not-Taking Fluconazole 150 MG Tablet 1 tablet Orally once daily , Not-Taking Ferrous Sulfate 325 (65 Fe) MG Tablet Delayed Release 1 tablet Orally once daily , Not- Taking Vitamin K 100 MCG Tablet 1 tablet Orally Once a day , Not-Taking Sucraid 8500 UNIT/ML Solution 1 mL orally 3 times a day , Not-Taking ZELNORM 6 MG TABLET 1 TAB(S) ORALLY 2 TIMES A DAY , Notes to Pharmacist: *Please review for potential replacement for e-prescription and drug interaction check*, Medication List reviewed and reconciled with the patient * Allergies: C yan. Objective: * Vitals: W t: 139.0, Temp: 97.6, BP: 126/84, HR: 66, Nurse: noa, Ht: 67, BMI:21.77. * Examination: G eneral Examination: General Appearance: N AD. H EENT: s clera and conjunctiva clear, PERRLA, TM's normal, translucent, EOM's with normal ROM. O ral cavity: n o lesions, mucosa moist and WNL, no erythema. N roc: s upple, no lymphadenopathy, ttp along the lower c-spine and pain with ROM of neck. C hest: n ormal shape and expansion. H eart:?RSR. L ungs: c lear to auscultation. A bdomen: b owel sounds present, soft and nontender, no organomegaly or masses, no guarding or rigidity. N eurologic Exam: I ntact, gait normal. S kin: n ormal, no rash. P eripheral pulses: n ormal (2+) bilaterally. E xtremities: n o leg edema. * Physical Examination: G ENERAL: Pain Assessment: P ain level:2 , on a scale of 0-10 (with 10 being extreme pain) . F unctional Status Assessment: P atient response to question of how often physical health interferes with daily activities: .almost never Able to perform ADLs-including meal preparation, grocery shopping, housework, laundry, taking medications or handling finances. Cognitive Status: alert and oriented. Ambulation Status: Fully ambulatory . F all Risk Assessment: I ndependant in ambulation, adequate lighting in home. Patient has NOT fallen or had trouble walking within the past 12 months . D epression Screening: D enies depressed mood or anxiety. Describes emotional health as: calm/peaceful. B ladder Control Screening: D enies problems . Assessment: * Assessment: 1. A dult general medical examination - Z00.00 (Primary) 2 . N roc pain - M54.2 3 . H ormone replacement therapy - Z79.890 4 . V itamin B12 deficiency - E53.8 5 . C ardiac dysrhythmia, unspecified - I49.9 6 . I rritable bowel syndrome with both constipation and diarrhea - K58.2 7 . G astroesophageal reflux disease, esophagitis presence not specified - K21.9 ?8. H ypercholesteremia - E78.00 9 . V itamin D deficiency - E55.9 & #160; 1 0. I samantha deficiency anemia, unspecified iron deficiency anemia type - D50.9 1 1. C ervical disc disorder with radiculopathy - M50.10 1 2. B IA 21.0-21.9, adult - Z68.21 1 3. O steoporosis screening - Z13.820 1 4. S creening mammogram, encounter for - Z12.31 1 5. S creening, lipid - Z13.220 Plan: * Treatment: 2. H ypercholesteremia Notes: Will come back for fasting labs. Will need a CBC, CMP, LIpid, B12, Vit D, TSH with reflex to Free T4, Iron, Ferritin 3. O steoporosis screening I maging: Bone density 4.?Screening mammogram, encounter for?Imaging: Mammogram* Tegan Sunshine 04/14/2025 08:1 3:05 AM EDT > faxed to [facility] Tegan Armendariz 04/15/2025 11:56:18 AM EDT > 05/11/2025 at 09:30am * Procedure Codes: G 0439 ANNUAL WELLNESS VST; PPS SUBSQT VST, Modifiers: 25 , G2211 Complex e/m visit add on, 1090F PRES/ABSN URINE INCON ASSESS, 3288F FALL RISK ASSESSMENT DOCD, 1170F FXNL STATUS ASSESSED, 1159F MED LIST DOCD IN RCRD, 1003F LEVEL OF ACTIVITY ASSESS, 1036F TOBACCO NON-USER, 3017F COLORECTAL CA SCREEN DOC REV, 1125F AMNT PAIN NOTED PAIN PRSNT, G8510 NEG SCR Depression PT NOT ELIG F/U/PLN DOC, G8420 BMI<30 AND >=22 CALC & DOCU, G8783 BP SCR PRFRM RCMDD DEFIND SCR INTVL, G8752 MOST RECENT SYSTOLIC BP < 140MM HG, G8754 MOST RECENT DIASTOLIC BP < 90MM HG * Preventive Medicine: Counseling: E motional health: P atient encouraged to try connecting with family or friends to boost mood. B ladder control: M ethods of controlling or managing leakage of urine discussed. E xercise: P atient advised to start, increase or maintain level of exercise/physical activity. I njury prevention: F all prevention discussed. Discussed need for cane/walker. Potential trip hazards discussed. Immunizations: T etanus u p to date. P neumococcal r ecommended. I nfluenza u p to date. Screening / Special Tests: M ammogram R ecent history: 09/12/2023, negative.?Colonoscopy R ecent history: 02/2024 Dr. Parker, due in 2025. B one mineral Density R ecent history: 05/08/2012, osteopenia, recommended. * Follow Up: A s directed by . As directed by * Images: Billing Information: * Visit Code: 89292 Office Visit, Est Pt., Level 3. * Procedure Codes: G0439 ANNUAL WELLNESS VST; PPS SUBSQT VST. Modifiers: G221 Complex e/m visit add on. 1090F PRES/ABSN URINE INCON ASSESS. 3288F FALL RISK ASSESSMENT DOCD. 1170F FXNL STATUS ASSESSED. 1159F MED LIST DOCD IN RCRD. 1003F LEVEL OF ACTIVITY ASSESS. 1036F TOBACCO NON-USER. 3017F COLORECTAL CA SCREEN DOC REV. 1125F AMNT PAIN NOTED PAIN PRSNT. G8510 NEG SCR Depression PT NOT ELIG F/U/PLN DOC. G8420 BMI<30 AND >=22 CALC & DOCU. G8783 BP SCR PRFRM RCMDD DEFIND SCR INTVL. G8752 MOST RECENT SYSTOLIC BP < 140MM HG. G8754 MOST RECENT DIASTOLIC BP < 90MM HG. * Electronic signature of ISMAEL Morales on 05/11/2025 at 09:26 AM EDT Sign off status: Pending * Provider: ISMAEL Elkins Date: 0 04/13/2025 Generated for Kayla page/Grayson/eTransmitting on: 0 05/11/2025 09:26 AM EDT History and Physical Notes * HPI (History of Present Illness) Category Sub-Category Detail Notes Category Not es HPI Patient is here today for Patineto t is here today for a Medicare Annual Wellness Visit. Pt sts she has been going to Pt for sciatic pain in her leg which has now resolved, however she has been having pain in her neck and she would like an MRI Physical Examination Category Sub-Category Detail Notes Section Note s GENERAL Pain Assessment: Pain level:2 , on a scale of 0-10 (with 10 being extreme pain) Functional Status Assessment: Patient re sponse to question of how often physical health interferes with daily activities: .almost neverAble to perform ADLs-including meal preparation, grocery shopping, housework, laundry, taking medications or handling finances.Cognitive Status: alert and oriented.Ambulation Status: Fully ambulatory Fall Risk Assessment: Independant in amb ulation, adequate lighting in home. Patient has NOT fallen or had trouble walking within the past 12 months Depression Screening: Denies depressed m ood or anxiety. Describes emotional health as: calm/peaceful Bladder Control Screening: Denies proble ms Examination Category Sub-Category Detail Notes Category Not es General Examination HEENT: sclera and c onjunctiva clear, PERRLA, TM's normal, translucent, EOM's with normal ROM Heart: RSR Lungs: clear to auscultatio n Abdomen: bowel sounds present , soft and nontender, no organomegaly or masses, no guarding or rigidity Extremities: no leg edema General Appearance: NAD Skin: normal, no rash Neurologic Exam: Intact, gait normal Neck: supple, no lymphaden opathy, ttp along the lower c-spine and pain with ROM of neck Oral cavity: no lesions, mucosa m oist and WNL, no erythema Peripheral pulses: normal (2+) bilatera lly Chest: normal shape and exp ansion
--- OUTSIDE RECORDS SUMMARY | 2025-04-16 06:20 | XMS_ITS ---
Author Organization [facility] Address [address] [facility] [address] [place] [id number] Care Team Providers Care Air Traffic Supervisor Name Role Phone Gisela Gunn Primary Care Provider [phone] JaspreetAnnetta davis Unavailable [phone] Results Component Value Reference Range Notes CBC [...] a nd pick correct strength-formulati on from [employer] options. If intended option is not shown, [...] Status Risk Notes Problem Vitamin D deficiency (92916022) Vitamin D deficiency, unspecified (E55.9) Active confirmed Problem Hyperlipidemia (75939462) Other hyperlipidemia (E78.4) Active confirmed Encounters Encounter Location Date Provider Diagnosis [facility] [address] [facility] [address] [place] [id number] 04/16/2025 Annetta Novak Vitamin B12 deficien cy [...] :1960 A ge:64 Y S ex:Female Date:04/16/2025 Address:[address] [place] [address] [place], [id number] Pcp:Gisela Gunn Subjective: * Chief Complaints: * 1 . Bloodwork. * Medical History: * Medications: T aking Vitamin B-12 1000 MCG Tablet 1 tab(s) orally once a day , Taking Premarin 0.625 MG/GM Cream 1 g apply topically twice a week prn , Taking Magnesium 250 MG 2 ORALLY DAILY , Notes to Pharmacist: *Please review and pick correct strength- formulation from [employer] options. If intended option is not shown, [...] * Procedure Codes: 3 6415 VENIPUNCT, ROUTINE*, 45496 CBC WITH AUTO DIFF * Images: Billing Information: * Visit Code: * Procedure Codes: 34529 VENIPUNCT, ROUTINE*. 79040 CBC WITH AUTO DIFF. * Electronic signature of ISMAEL Morales on 05/11/2025 at 09:25 AM EDT Sign off status: Pending * Provider: ISMAEL Elkins Date: 0 04/16/2025 Generated for Kayla page/Grayson/eTransmitting on: 0 05/11/2025 09:25 AM EDT
--- OUTSIDE RECORDS SUMMARY | 2025-04-28 08:26 | XMS_ITS ---
Author Organization [facility] Address [address] [facility] 36 [facility] [address] [place] [id number] Care Team Providers Care Smog Technician Name Role Phone Gisela Gunn Primary Care Provider [phone] Annetta Novak [phone] REASON FOR VISIT lab and DI order Encounters Encounter Location Date Provider Diagnosis [facility] 1210 [facility] 36 [facility] [address] [place] [phone] 04/28/2025 Annetta Novka Neck pain M54.2 Assessments Encounter Date Diagnosis (ICD Code) Assessment Notes Treatment Notes Treatment Clinical Notes Section Notes 04/28/2025 Neck pain (ICD-10 - M54.2) Plan Of Treatment Pending Test Test Name Order Date MRI : Spine, Cervical, without contrast 04/28/2025 Progress Notes * CATHERINENICKI KLEINOB: (64 yo F)Acc No.[id number]:04/28/2025 Patient: TAMIKA YBARRA :1960 A ge:64 Y S ex:Female Address:[address] [place] [address] [place] [address] Subjective: * Chief Complaints: * l ab and DI order * Medical History: * Surgical History: * Hospitalization/Major Diagno stic Procedure: * Medications: Objective: * Vitals: * Physical Examination: Assessment: * Assessment: 1. N roc pain - M54.2 (Primary) Plan: * Treatment: * Procedure Codes: * true * Date: Generated for Printi ng/Faxing/eTransmitting on: 0 05/11/2025 09:26 AM EDT
--- NOTE | 2025-05-11 09:26 | MM_ITS ---
PROCEDURE INFORMATION: Exam: MG Bilateral Screening 3D Mammography Exam date and time: 05/11/2025 9:41 AM Age: 64 years old Clinical indication: Screening examination TECHNIQUE: Imaging protocol: Bilateral Screening tomosynthesis and 2D mammography including computer-aided detection (CAD) when performed. COMPARISON: 1. MG MM DIG SCREENING MAMM BI W/CAD 09/12/2023 9:57 AM 2. MG MM DIG SCREENING MAMM BI W/CAD 09/09/2022 10:54 AM FINDINGS: MAMMOGRAPHY: Breast composition: The breasts are heterogeneously dense, which may obscure small masses. Mass: No suspicious masses. Architectural distortion: None. Calcifications: No suspicious calcifications. Asymmetric density: None. Skin thickening: None. Axillary adenopathy: None. IMPRESSION: No mammographic evidence of malignancy. Annual screening is recommended unless otherwise clinically indicated. ASSESSMENT: BI-RADS Category 1: Negative.
--- NOTE | 2025-05-11 09:26 | XR_ITS ---
FINAL REPORT CLINICAL HISTORY: SCREENING COMPARISON: None FINDINGS: Using L1-4, the bone mineral density of the spine is 1.042 g/cm2, corresponding to T-score of 0.0, within normal limits. Using the left hip, the bone mineral density of the femoral neck is 0.681 g/cm2, corresponding to a T-score of -1.5, compatible with osteopenia. Using the right hip, the bone mineral density of the femoral neck is 0.735 g/cm2, corresponding to a T-score of -1.0, within normal limits. FRAX 10 year fracture risk is 1.1% for a hip fracture and 8.6% for a major osteoporotic fracture. NOTE: T-score: Standard deviation compared with peak bone mass of young adult mean. *Following the recommendations of the International Society of Bone densitometry, classification of hip BMD is based on the lower of two T-scores; total hip or femoral neck. IMPRESSION: Normal bone mineral density of the lumbar spine and right hip, with diminished bone mineral density in the left hip consistent with osteopenia. Reviewed, Interpreted and Dictated by Alea Carney MD Transcribed by Mercedez Galindo Authenticated and [facility]
--- OUTSIDE RECORDS SUMMARY | 2025-05-11 09:26 | XMS_ITS | Patient Health Record ---
Author [facility] Address [address] [facility] [address] [place] [phone] Care Team Providers Care Manager Field Name Role Phone Gisela Gunn Primary Care Provider [phone] Jessenia Rehman Unavailable [phone] Annetta Novak Unavailable [phone] Allergies Allergen (clinical drug ingredient) Drug/Non Drug [...] 278 100 - 400 X ray : Spine, cervical Reviewed date:02/16/2025 04:30:02 PM Interpretation:degenerative changes Performing Lab: Notes/Report: degenerative changes X ray : Hip, right Reviewed date:02/16/2025 04:30:34 PM Interpretation:no acute changes Performing Lab: Notes/Report: no acute changes Medications Medication SIG (Take, Route, Frequency, [...] a nd pick correct strength-formulati on from [employer] options. If intended option is not shown, [...] Vaccine Route Administration Date Status Comme nts COVID 19 Moderna Unknown 11/01/2020 Administered COVID 19 Moderna Unknown 11/29/2020 Administered COVID 19 Moderna Unknown 08/22/2021 Administered COVID 19 Moderna Unknown 05/08/2022 Administered DT, 7 YEARS OR OLDER Unknown 01/03/1997 Administered Fluzone High Dose (65yr and older) IM Intramuscular 10/03/2023 Administered Fluzone PF Quad (6-35 months) Unknown 08/13/2018 Administered Fluzone PF Quad (6-35 months) Unknown 08/18/2022 Administered Fluzone Quad (6months&older) Unknown 08/13/2018 Administered Fluzone Quad (6months&older) IM Intramuscular 08/27/2019 Administered Fluzone Quad (6months&older) IM Intramuscular 08/17/2020 Administered Prevnar (PCV20) IM Intramuscular 10/03/2023 Administered Shingrix Unknown 07/16/2022 Administered Shingrix Unknown 03/03/2023 Administered Tetanus Tdap-Adacel (over 7yrs) IM Intramuscular 10/04/2010 Administered Tetanus Tdap-Adacel (over 7yrs) Unknown 08/21/2018 Administered Tetanus Tdap-Adacel (over 7yrs) Unknown 02/10/2022 Administered Twinrix-Hep A and Hep B Unknown 08/21/2018 Administered Twinrix-Hep A and Hep B Unknown 09/24/2018 Administered Twinrix-Hep A and Hep B Unknown 03/05/2019 Administered xFluzone (6mos and older)-trivalent ID Intradermal 11/19/2012 Administered xFluzone High Dose-private (65yr&older) Unknown 09/24/2024 Administered Problems Problem Type SNOMED Code ICD Code Onset Dates Problem Status W/U Status Risk Notes Problem Vitamin D deficiency (55510039) Vitamin D deficiency (E55.9) Active confirmed Problem Vitamin B12 deficien cy (846619950) Vitamin B12 deficiency (E53.8) Active confirmed Problem Vitamin D deficiency (63752195) Vitamin D deficiency, unspecified (E55.9) Active confirmed Problem Hyperlipidemia (52654942) Other hyperlipidemia (E78.4) Active confirmed Problem Unspecified menopausal and perimenopausal disorder (N95.9) Active confirmed Problem Cervical disc disord er with radiculopathy (524031370) Cervical disc disorder with radiculopathy (M50.10) Active confirmed Problem Constipation (41740879) Constipation, unspecified constipation type (K59.00) Active confirmed Problem Neck pain (24449037) Acute neck pain (M54.2) Active confirmed Problem Gastroesophageal reflux disease with esophagitis (750714460) Gastroesophageal reflux disease with esophagitis (K21.0) Active confirmed Problem Paresthesia (finding ) (54827479) Paresthesias (R20.2) Active confirmed Problem Gastroesophageal reflux disease (259442492) Gastroesophageal reflux disease, esophagitis presence not specified (K21.9) Active confirmed Problem Arthralgia of the pelvic region and thigh (719196823) Right hip pain (M25.551) Active confirmed Problem Iron deficiency anem ia (42238918) Iron deficiency anemia, unspecified iron deficiency anemia type (D50.9) Active confirmed Problem Cardiac dysrhythmia (599527224) Cardiac dysrhythmia, unspecified (I49.9) Active confirmed Problem Atrophic gastritis (13989690) Chronic gastritis without bleeding, unspecified gastritis type (K29.50) Active confirmed Problem Irritable bowel syndrome characterized by constipation (400006679) Irritable bowel syndrome with constipation (K58.1) Active confirmed Problem Irritable bowel syndrome (28164972) Irritable bowel syndrome with both constipation and diarrhea (K58.2) Active confirmed Problem Bladder spasm (500040095) Bladder spasm (N32.89) Active confirmed Problem Gastroesophageal reflux disease (642613456) Gastroesophageal reflux disease, unspecified whether esophagitis present (K21.9) Active confirmed Problem hypercholesterolemia (disorder) (16209352) Hypercholesteremia (E78.00) Active confirmed Vital Signs Heart Rate 66 /min 04/13/2025 Blood pressure diastolic 84 mm Hg 04/13/2025 Height 67 in 04/13/2025 Blood pressure systolic 126 mm Hg 04/13/2025 Weight 139.0 lbs 04/13/2025 BMI 21.77 kg/m2 04/13/2025 Encounters Encounter Location Date Provider Diagnosis [facility] 1210 [facility] [address] [id number] 02/15/2025 Jessenia Rehman Acute neck pain M54. 2 ; Acute right hip pain M25.551 and BMI 22.0-22.9, adult Z68.22 [facility] [facility] [address] [id number] 04/13/2025 Annetta Novak Adult general medica l [...] encounter for Z12.31 and Screening, lipid Z13.220 [facility] [address] [place], [place] [id number] 04/16/2025 Annetta Novak Vitamin B12 deficien cy E53.8 ; Vitamin D deficiency, unspecified E55.9 ; Iron deficiency anemia, unspecified iron deficiency anemia type D50.9 and Hypercholesteremia E78.00 [facility] [address] [place], [place] [id number] 02/15/2025 Gisela Gunn [facility] [address] [place], [place] [id number] 02/16/2025 Annettavera Novak [facility] [address] [place], [place] [id number] 02/21/2025 Jessenia Rehman [facility] [address] [place], [place] [id number] 03/04/2025 Jessenia Garciaond [facility] [address] [place], [place] [id number] 03/08/2025 Jessenia Rehman [facility] [address] [place], [place] [id number] 03/15/2025 Gisela Gunn [facility] [address] [place], [place] [id number] 04/28/2025 Annetta Novak Neck pain M54.2 Assessments [...] assessment, Depression screening and Bladder control screening. 04/16/2025 Vitamin B12 deficien cy (ICD-10 - E53.8) 04/16/2025 Vitamin D deficiency , unspecified (ICD-10 - E55.9) 04/28/2025 Neck pain (ICD-10 - M54.2) 04/16/2025 Iron deficiency anemia, unspecified iron deficiency anemia type (ICD-10 - D50.9) 02/15/2025 BMI 22.0-22.9, adult (ICD-10 - Z68.22) 04/13/2025 Hormone replacement therapy (ICD-10 - Z79.890) 04/13/2025 Vitamin B12 deficien cy (ICD-10 - E53.8) 04/16/2025 Hypercholesteremia (ICD-10 - E78.00) 04/13/2025 Cardiac dysrhythmia, unspecified (ICD-10 - I49.9) [...] Spine, Cervical, without contrast 04/28/2025 Bone density 04/07/2024 Bone density 04/13/2025 Mammogram 04/13/2025 P-Vitamin B12 04/16/2025 P-Comprehensive Metabolic Panel (CMP) P-Iron 04/16/2025 P-Lipid Panel 04/16/2025 P-TSH reflex to FT4 04/16/2025 P-Vitamin D 25-Hydroxy 04/16/2025 Insurance Providers Payer Name Payer Address Payer Phone Subscriber Number Group Number Insured Name Patient Relationship to Insured Coverage Start Date Coverage End Date MEDICARE PART B [address] [address] [place] [phone] [id number] TAMIKA HASSAN Self - patient is the insured [address] [id number] TAMIKA HASSAN Self - patient is [...]
--- NOTE | 2025-05-11 12:47 | MR_ITS ---
FINAL REPORT TECHNIQUE: Multiplanar MR without contrast CLINICAL HISTORY: SCREENINGS/NECK PAIN. left sided neck pain. tingling in fingers in right hand. no injury or trauma FINDINGS: Limited images of the posterior fossa are unremarkable. Alignment is normal. Cervical spinal cord shows normal signal and contour. C2-3: Unremarkable C3-4: Unremarkable C4-5: Tiny central disc protrusion. C5-6: Mild annular disc bulge without canal stenosis or nerve root compression. C6-7: Mild annular disc bulge without canal stenosis. C7-T1: Unremarkable IMPRESSION: Mild degenerative disc changes lower cervical spine without canal stenosis or definite nerve root compression. Reviewed, Interpreted and Dictated by Alea Carney MD Transcribed by Azucena Goodwin Authenticated and [facility]
== END 2025-05-11 23:59 | disposition home or self-care (01) ==
LOC: RAD 09:24
PROVIDERS: PCP Physician Assistant; Visit Provider Physician Assistant
DX: Z12.31 Encounter for screening mammogram for malignant neoplasm of breast (principal); M47.812 Spondylosis without myelopathy or radiculopathy, cervical region; R92.333 Mammographic heterogeneous density, bilateral breasts; M85.852 Other specified disorders of bone density and structure, left thigh; M81.0 Age-related osteoporosis without current pathological fracture
CPT/HCPCS: 72141; 77063; 77067; 77080